=== PATIENT | male | born 1960 | race Two or more races ===

== ENCOUNTER 2020-05-24 06:04 | Day surgery (SDC) | payer OTHER ==
--- NOTE | 2020-05-23 18:37 | Pre-Procedure Note/Attestation ---
Pre-Procedure Note/Attestation Complete Prior to Procedure Planned Procedure: not applicable Procedure Narrative: 1. ORIF nasal fracture 2. Septoplasty 3. SMR inf right turbinate 4. SMR inf left turbinate 5. Right upper eyebrow lift Indications for Procedure Pre-Operative Diagnosis: 1. Nasal fracture 2. Nasal septal deviation 3. Hypertrophied right inferior turbinate 4. Hypertrophied left inferior turbinate 5. Ptosis right eyebrow Attestation I attest that I discussed the nature of the procedure; its benefits; risks and complications; and alternatives (and the risks and benefits of such alternatives), prior to the procedure, with the patient (or the patient's legal sales utility representative). I attest that, if there was a reasonable possibility of needing a blood transfusion, the patient (or the patient's legal sales utility representative) was given the [place] [employer] standardized written summary, pursuant to the Moe Dick Blood Safety Act ([place] Health and Safety Code # 1645, as amended). I attest that I re-evaluated the patient just prior to the surgery and that there has been no change in the patient's H&P done by Dr. Horvath and reviewed by me. Both of us are on staff at [facility]. Edy Delgadillo MD May 23, 2020 18:37
--- NOTE | 2020-05-23 18:40 | Brief Operative Note ---
Immediate Post Operative Note Operative Note Pre-op Diagnosis: 1. Nasal fracture 2. Nasal septal deviation 3. Hypertrophied right inferior turbinate 4. Hypertrophied left inferior turbinate 5. Ptosis right eyebrow Procedure: 1. ORIF nasal fracture 2. Septoplasty 3. SMR inf right turbinate 4. SMR inf left turbinate 5. Right upper eyebrow lift Post-op Diagnosis: same as pre-op Surgeon: Edy Delgadillo Urologist Md: none Additional Surgeons: none Anesthesiologist: Thi Anesthesia: general Specimen: none Complications: none Condition: stable Fluids: D5LR Estimated Blood Loss: volume - 25 cc Drains: none Packing: SinoNasal gel Implant(s) used?: No Edy Delgadillo MD May 23, 2020 18:39
--- NOTE | 2020-05-23 18:41 | Discharge Instructions ---
Discharge Instructions Discharge Instructions Diet: regular Resume Normal Activity?: No Activity: light activity Pneumonia Vaccine: pt refused vaccine Influenza Vaccine (May to Oct): pt refused vaccine For Surgical Patients Dressing Care: keep dry and clean May shower: No For Congestive Heart Failure Reminder Report to your physician any weight gain of 5 pounds or more in one week. Edy Delgadillo MD May 23, 2020 18:41
[~2020-05-24] VITALS: Ht 167.6 cm; Wt 76.2 kg
[2020-05-24] VITALS (11 sets, daily range): BP systolic 127–153; BP diastolic 76–95
[~2020-05-24 06:04] MED LIST: AMOXICILLIN500 MG ORAL; CYMBALTA60 MG ORAL; DOCUSATE SODIU100 MG ORAL; GABAPENTIN600 MG ORAL; NORCO 5-325 TA1 EAC1 ORAL; OMEPRAZOLE20 M3 ORAL; TYLENOL EXTRA500 MG ORAL
[2020-05-24] MEDS ORDERED: ceFAZolin sod 1 GM in D5W 55 ML IVPB ONE (07:15)
[2020-05-24] MEDS ORDERED: Cocaine HCl 4% 4ml vial TOPIC ONE ×2 (07:18→08:11)
[2020-05-24] MEDS ORDERED: EPINEPHrine 1mg/1ml Amp ONE (07:18)
[2020-05-24] MEDS ORDERED: Lidocaine 1% 10mg/ml/EPI 0.01mg/ml 30ml INJ ONE (07:18)
[2020-05-24] MEDS ORDERED: Bupivacaine 0.5% Inj 30 ml vial INJ ONE (07:18)
[2020-05-24] MEDS ORDERED: dexAMETHasone 10mg/ml Inj IV ONE (07:30)
[2020-05-24] MEDS ORDERED: Metoclopramide 10mg/2ml Inj IVP PRN ×2 (07:45→09:45)
[2020-05-24] MEDS ORDERED: Meperidine 25mg/0.5ml Inj (FOR RIGORS ONLY) IV PRN (07:45)
[2020-05-24] MEDS ORDERED: Midazolam 2mg/2ml Inj IVP PRN (07:45)
[2020-05-24] MEDS ORDERED: LR 1000ml 1,000 ML IVLG SCH (07:45)
[2020-05-24] MEDS ORDERED: Labetalol 5mg/ml 20ml vial IV PRN (07:45)
[2020-05-24] MEDS ORDERED: HYDROcodone/Acetamin 5/325 tab ORAL PRN ×2 (07:45→09:45)
[2020-05-24] MEDS ORDERED: HYDROcodone/Acetamin 7.5/325 tab ORAL PRN (07:45)
[2020-05-24] MEDS ORDERED: Ketorolac 30mg Inj IV PRN ×2 (07:45)
[2020-05-24] MEDS ORDERED: DiphenhydrAMINE 50mg/ml Inj IVP PRN (07:45)
[2020-05-24] MEDS ORDERED: fentaNYL 100 mcg/2 mL IV PRN (07:45)
[2020-05-24] MEDS ORDERED: Atropine Sulfate 0.4mg/ml inj IVP PRN (07:45)
[2020-05-24] MEDS ORDERED: Acetaminophen (Non formulary) 100 ML IV ONE (07:45)
[2020-05-24] MEDS ORDERED: LORazepam Inj 2mg/ml 1ml IV PRN (07:45)
[2020-05-24] MEDS ORDERED: Hydromorphone 0.5mg/0.5ml inj IVP PRN (07:45)
[2020-05-24] MEDS ORDERED: oxyCODONE HCL/Acetaminophen 5/325mg ORAL PRN (07:45)
--- NOTE | 2020-05-24 07:49 | Anethesia Preoperative Eval ---
Anesthesia Pre-op PMH/ROS General Date of Evaluation: May 24, 2020 Time of Evaluation: 08:15 Anesthesiologist: Thi ASA Score: ASA 2 Mallampati Score Class I : Soft palate, uvula, fauces, pillars visible Class II: Soft palate, uvula, fauces visible Class III: Soft palate, base of uvula visible Class IV: Only hard plate visible Mallampati Classification: Class II Surgeon: Elie Diagnosis: Nasal Deformity Surgical Procedure: Septoplasty, SMR Turbinates, Nasal Fracture Repair Anesthesia History: none Family History: no anesthesia problems Allergies: Coded Allergies: No Known Allergies (Unverified , 05/23/20) Medications: see eMAR Patient NPO?: Yes Past Medical History HEENT: Reports: cataract (L), cataract (R) Musculoskeletal/Integumentary: Reports: other - Facial, Skull Fractuire PSxH Narrative: Crainiotomy, R Knee Surgery Anesthesia Pre-op Phys. Exam Physician Exam Last Vital Signs Date Time Temp Pulse Resp B/P (MAP) Pulse Ox O2 Delivery O2 Flow Rate FiO2 05/24/20 06:49 Room Air 05/24/20 06:45 98.1 57 18 127/80 99 Constitutional: NAD Neurologic: CN 2-12 intact Cardiovascular: RRR Respiratory: CTA Gastrointestinal: S/NT/ND Airway Exam Mallampati Score: Class II MO: full ROM: full Teeth: missing, intact Anesthesia Pre-op A/P Risk Assessment & Plan Assessment: ASA 2 Plan: GA, SED Status Change Before Surgery: No Pre-Antibiotics Dru Gram Ancef IV Given Within 1 Hr of Incision: Yes Time Given: 08:26 Ward Ness MD May 24, 2020 07:49
--- NOTE | 2020-05-24 07:50 | Immediate Post-Op Evaluation ---
Immediate Post-Op Evalulation Immediate Post-Op Evalulation Procedure: Septoplasty, SMR Turbinates, Nasal Fracture Repair Date of Evaluation: May 24, 2020 Time of Evaluation: 09:57 IV Fluids: 500 LR Blood Products: 0 Estimated Blood Loss: 25 Urinary Output: 0 Blood Pressure Systolic: 131 Blood Pressure Diastolic: 78 Pulse Rate: 62 Respiratory Rate: 16 O2 Sat by Pulse Oximetry: 98 Temperature (Fahrenheit): 97.3 Pain Score (1-10): 2 Nausea: No Vomiting: No Complications 0 Patient Status: awake, reacts, patent, none Hydration Status: adequate Dru Gram Ancef IV Given Within 1 Hr of Incision: Yes Time Given: 08:26 Ward Ness MD May 24, 2020 07:50
--- NOTE | 2020-05-24 07:51 | 48 Hour Post Anesthesia Eval ---
Post Anesthesia Evaluation Procedure: Septoplasty, SMR Turbinates, Nasal Fracture Repair Date of Evaluation: May 24, 2020 Time of Evaluation: 12:12 Blood Pressure Systolic: 128 0: 74 Pulse Rate: 63 Respiratory Rate: 18 Temperature (Fahrenheit): 98 O2 Sat by Pulse Oximetry: 98 Airway: patent Nausea: No Vomiting: No Pain Intensity: 2 Hydration Status: adequate Cardiopulmonary Status: Stable Mental Status/LOC: patient returned to baseline Follow-up Care/Observations: 0 Post-Anesthesia Complications: 0 Follow-up care needed: ready to discharge Ward Ness MD May 24, 2020 07:50
[2020-05-24] MEDS ORDERED: LR 1000ml ONE (08:00)
[2020-05-24] MEDS ORDERED: Sterile Water Irrig 1000ml IRRIG ONE (08:00)
[2020-05-24] MEDS ORDERED: Lidocaine 1% MPF 10mg/ml 5ml ONE (08:11)
[2020-05-24] MEDS ORDERED: Sodium Chloride 10ml vial INJ ONE (08:11)
[2020-05-24] MEDS ORDERED: fentaNYL 100 mcg/2 mL IV ONE (08:12)
[2020-05-24] MEDS ORDERED: Midazolam 2mg/2ml Inj ONE (08:13)
[2020-05-24] MEDS ORDERED: NS Irrig 1000ml IRRIG ONE (08:29)
[2020-05-24] MEDS ORDERED: HYDROmorphone 1mg/ml Carpuject SUBQ PRN (09:45)
--- NOTE | 2020-05-24 11:45 | Operative Note - Dictated ---
DATE OF OPERATION: 05/24/2020 SURGEON: Edy Delgadillo MD. PUNCH PRESS SETTER: None. ANESTHESIOLOGIST: Ward Ness MD. ANESTHESIA: LMA general anesthesia, 20 mL of 50:50 mixture 1% lidocaine with 1:100,000 epinephrine and Marcaine 0.5% 1:200,000 epinephrine. Additionally 4 mL of 4% topical cocaine. These were placed on four pledgets, two on either nostril and accounted for at the end of the case. 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 FINDINGS: Septal deviation on the right all the way to the right lateral wall of the nose as well as nasal fracture a bump on the anterior nose and on the upper left displaced nasal bone. Finally, there was ptosis of the right upper eyebrow. Please note that an endoscopic approach initially was going to be used, but he has a plate and some necrosis of bone in that area and it was felt that that would be inappropriate and dangerous, and therefore of the old direct brow lift technique was utilized on the existing line. PROCEDURES: 1. Right eyebrow repair for ptosis with multilayer advancement flap closure. 2. Open reduction and internal fixation of nasal fracture. 3. Septoplasty. 4. Submucous resection, right inferior turbinate. 5. Submucous resection, left inferior turbinate. TECHNIQUE: The patient was prepped and draped in the usual manner via LMA general anesthesia. A time-out was performed and all agreed as to the procedure and equipment necessary. I then injected the aforementioned lidocaine, Marcaine, and epinephrine mixture and placed the nasal pledget in the nostrils. Please note, I could not pass it in the right nostril at all due to the septal deviation. Next, initially I made an incision in the left inferior turbinate with a 15 blade. Two passes with radiofrequency wand after coating with saline gel in setting of 6 for 10 seconds x2. I then outfractured the inferior turbinates with a butter knife. I started with the right upper brow as this is sterile procedure at this point. I made an incision approximately 2 centimeters above the eyebrow in the crease that already existed. This was approximately 4 to 5 centimeters long. I then cut out tissue down to the periosteum. I then elevated the muscle and one through the muscle of the inferior aspect with a 3-0 Mersilene and attached it superiorly tightening up the lower part of muscle. I then did a second later with Mersilene in the upper part of the frontalis muscle to pull this area tight. I then placed a third Mersilene to approximate the edges. This elevated the eyebrow approximately a centimeter and a half. Epithelial edges was closed with a 6-0 Prolene horizontal mattress running suture. Steri-Strips were placed over this and a small 2 x 2 with a Tegaderm dressing to cover. I was unable to approach the right inferior turbinate because of the septal deviation. I then went forward with the septoplasty. A Aureliano incision was made with a 15 blade. I was able to elevate subperiosteally and subchondrally with a dental elevator on both sides. I then was able to cut out 5 mm height leaving 1 cm inferiorly intact and removed this with a angled scissors and a straight Paola. I then was able to sew the flap back into position and visualized the inferior turbinate on the right. The incision anterior inferior aspect of the right inferior turbinate. Radiofrequency wand coated with saline gel at a setting of 6 was passed twice in the inferior turbinate. I then proceeded to outfracture with a Boies elevator. Between the cartilage incisions, stab incisions and elevated with a malin scissors over the anterior nose and then Aufricht. I then used a gouge osteotome for medial osteotomy in the lateral osteotome guarded for the low osteotomies. Nose was freed. There was no greenstick fracture. Stammberger nasal gel was placed in the nose and a mustache dressing. COUNTS: Sponge and needle count was correct. ESTIMATED BLOOD LOSS: 25 mL. COMPLICATIONS: None. DRAINS: None. The patient is awake and alert, and stable, extubated in the operating room and then 20 minutes later in the recovery room. Edy Delgadillo M.D. DR: NITESH JOB#: [id number] CC:
--- NOTE | 2020-05-24 12:00 | NUR ---
Mustache dressing with minimal amount of bleeding and changed. Patient verbalized understanding on ability to change dressing himself. Small amount of blood from sputum noted of gel-like material. Patient made aware of nasal packing used. Denies discomfort or any difficulty of breathing. Ice packs to both taryn orbital areas applied.
== END 2020-05-24 12:10 | disposition home or self-care (01) ==
LOC: SUR 06:04
DX: S02.2XXA Fracture of nasal bones, initial encounter for closed fracture (principal); J34.2 Deviated nasal septum; H57.811 Brow ptosis, right; X58.XXXA Exposure to other specified factors, initial encounter; Y92.9 Unspecified place or not applicable
CPT/HCPCS: 21330; 30140; 30520; 67900; 94003; C9046; J0131; J0171; J0690; J1100; J1885; J2250; J2405; J2704; J3010; J3490; J7120; U0002; 94150